=== PATIENT | male | born 1990 | race African-American/Black ===

== ENCOUNTER 2023-01-27 18:34 | Emergency (ER) | payer MEDICAID, OTHER ==
[~2023-01-27] VITALS: Ht 180.3 cm; Wt 81.0 kg
[2023-01-27 18:48] VITALS: BP 135/76; PULSE 103; RESP 20; TEMP 98.9; O2SAT 100
[2023-01-27] MEDS ORDERED: IBUP-2030 MT (20:09)
== END 2023-01-27 20:40 | disposition home or self-care (01) ==
LOC: ER 18:34
DX: S62.306A Unspecified fracture of fifth metacarpal bone, right hand, initial encounter for closed fracture (principal); S62.308A Unspecified fracture of other metacarpal bone, initial encounter for closed fracture; Y04.0XXA Assault by unarmed brawl or fight, initial encounter; Y93.89 Activity, other specified; Y92.89 Other specified places as the place of occurrence of the external cause; Y99.8 Other external cause status
CPT/HCPCS: 29125; 73130; 99283